=== PATIENT | male | born 1955 | race Caucasian/White ===

== ENCOUNTER → 2017-01-23 | Outpatient (CLI) | payer OTHER | LOC: RAD 09:08 | PROVIDERS: ATTEND Orthopaedic Surgery | DX: M25.562 Pain in left knee (principal); M71.22 Synovial cyst of popliteal space [Baker], left knee ==

== ENCOUNTER → 2018-08-11 | Outpatient (CLI) | payer OTHER ==
[2018-08-11 08:32] LABS: ABSOLUTE EOSINOPHILS # (AUTO) 0.1 10^3/uL (0.0-0.6); ABSOLUTE MONOCYTES (AUTO) 0.6 10^3/uL (0.1-1.4); ABSOLUTE NEUT (AUTO) 3.5 10^3/uL (1.7-8.2); BASOPHILS % (AUTO) 0.7 % (0-2); EOSINOPHILS % (AUTO) 2.2 % (0-6); HEMOGLOBIN 15.7 g/dL (13.5-17.0); LYMPHOCYTES % (AUTO) 31.7 % (13-45); MEAN CORPUSCULAR HEMOGLOBIN 31.3 pg (27.0-33.4); MEAN CORPUSCULAR HGB CONC 34.9 g/dL (32.0-36.0); MEAN CORPUSCULAR VOLUME 90 fl (80-97); MONOCYTES % (AUTO) 9.5 % (3-13); PLATELET COUNT 166 10^3/uL (150-450); RED BLOOD COUNT 5.01 10^6/uL (4.35-5.55); RED CELL DISTRIBUTION WIDTH 13.1 % (11.5-14.0); SEGMENTED NEUTROPHILS % (AUTO) 55.9 % (42-78); TOTAL CELLS COUNTED % (AUTO) 100 %; WHITE BLOOD COUNT 6.3 10^3/uL (4.0-10.5)
[2018-08-11 08:43] LABS: APPEARANCE,URINE CLEAR; BILIRUBIN,URINE NEGATIVE (NEGATIVE); COLOR,URINE YELLOW; GLUCOSE, URINE NEGATIVE (NEGATIVE); KETONES,URINE NEGATIVE (NEGATIVE); LEUKOCYTE ESTERASE,URINE NEGATIVE (NEGATIVE); NITRITE,URINE NEGATIVE (NEGATIVE); PROTEIN,URINE NEGATIVE (NEGATIVE); URINE SPECIFIC GRAVITY 1.015; UROBILINOGEN,URINE NEGATIVE mg/dL (<2.0)
[2018-08-11 09:04] LABS: ALANINE AMINOTRANSFERASE 39 U/L (21-72); ALBUMIN 4.4 g/dL (3.5-5.0); ALKALINE PHOSPHATASE 51 U/L (38-126); ANION GAP 9 (5-19); ASPARTATE AMINO TRANSFERASE 34 U/L (17-59); BILIRUBIN,DIRECT 0.2 mg/dL (0.0-0.4); BLOOD UREA NITROGEN 13 mg/dL (7-20); CALCIUM 9.7 mg/dL (8.4-10.2); CARBON DIOXIDE 29 mmol/L (22-30); CHLORIDE 101 mmol/L (98-107); GLUCOSE 99 mg/dL (75-110); POTASSIUM 4.7 mmol/L (3.6-5.0); SODIUM 138.7 mmol/L (137-145); TRIGLYCERIDES 106 mg/dL (<150)
[2018-08-11 09:05] LABS: CREATINE KINASE 188 U/L (55-170); GAMMA-GLUTAMYL TRANSFERASE 53 U/L (8-78); IRON 83.4 ug/dL (49-181)
[2018-08-11 09:15] LABS: DIRECT LDL 93 mg/dL (<100)
[2018-08-11 10:05] LABS: CHLAM PCR NOT DETECTED (NOT DETECT); GON PCR NOT DETECTED (NOT DETECT)
[2018-08-12 07:03] LABS: PROSTATE SPECIFIC ANTIGEN 5.1 ng/mL (0.0-4.0); PSA FREE 0.61 ng/mL
[2018-08-12 13:38] LABS: CREATININE URINE 156.6 mg/dL (Not Estab.); MICROALBUMIN URINE 4.2 ug/mL (Not Estab.)
== END ==
LOC: LAB 08:00
PROVIDERS: ATTEND Family Medicine
DX: Z00.00 Encounter for general adult medical examination without abnormal findings (principal); R97.8 Other abnormal tumor markers; R94.5 Abnormal results of liver function studies; E78.2 Mixed hyperlipidemia
CPT/HCPCS: 36415; 80053; 80061; 81001; 82043; 82306; 82550; 82570; 82607; 82728; 82746; 82977; 83036; 83540; 83735; 84154; 84403; 84443; 85025; 86592; 86701; 87491; 87591

== ENCOUNTER → 2018-11-30 | Outpatient (CLI) | payer OTHER ==
--- NOTE | 2018-12-01 09:19 | RADIOLOGY REPORT (SQ) ---
EXAM DESCRIPTION: PET CT SKULL/THIGH COMPLETED DATE/TIME: 11/30/2018 9:53 pm REASON FOR STUDY: ABNORMAL FINDING OF LUNG R91.8 OTHER NONSPECIFIC ABNORMAL FINDING OF LUNG FIELD COMPARISON: 09/22/2017. RADIONUCLIDE AND DOSE: 10 mCi F18 FDG The route of agent administration: Intravenous FASTING BLOOD SUGAR: 89 mg/dl CONTRAST TYPE AND DOSE: No CT contrast given. TECHNIQUE: Blood glucose level was verified. Above dose of FDG was injected intravenously. 2-D seg mented attenuation correction images were obtained from the base of the skull to the midthighs. Nonc ontrast CT images were obtained for attenuation correction and fusion with emission images. CT image s were performed without oral or intravenous contrast and are not sensitive for parenchymal lesions. A series of overlapping emission PET images were obtained. Images reviewed and manipulated at [facility] work station by the radiologist. Images stored on PACS. LIMITATIONS: None. FINDINGS: HEAD AND NECK: No areas of abnormal metabolic activity in the soft tissues of the head and neck. CHEST: Interval surgical changes on the left. Previously seen left lung nodule has been removed. Mi nimal left pleural effusion. Subcentimeter nodule in the right lower lobe (axial series 3, image 90) unchanged with no activity on PET imaging. There are small lymph nodes in the left axilla with slig htly prominent activity. 8.8 mm lymph node with mean SUV 2.81 (axial series 3, image 81) and another 8.8 mm lymph node with mean SUV 1.46 (axial series 3, image 83). ABDOMEN AND PELVIS: No areas of abnormal metabolic activity in the abdomen or pelvis. Expected physi ologic activity is present in the genitourinary system and bowel. PROXIMAL LOWER EXTREMITIES: No areas of abnormal metabolic activity in the soft tissues of the lower extremities. BONES: No abnormal metabolic activity in the visualized skeleton. ADDITIONAL CT FINDINGS: Low-attenuation lesion in the posterior right lobe of the liver, also present on the prior study, with no abnormal increased or decreased activity. No additional significant fin dings on the noncontrast CT images. OTHER: No other significant findings. Background blood pool activity mean SUV 1.75. Background live r activity mean SUV 2.27. IMPRESSION: 1. INTERVAL SURGICAL CHANGES ON THE LEFT WITH RESECTION OF THE PREVIOUSLY SEEN LEFT LUNG NODULE. SMA LL SUBCENTIMETER NODULE IN THE RIGHT LOWER LOBE IS UNCHANGED. NO ABNORMAL ACTIVITY WITHIN THE LUNGS OR MEDIASTINUM. 2. MINIMAL ACTIVITY IN THE LEFT AXILLARY LYMPH NODES DESCRIBED. THIS IS NONSPECIFIC AND COULD BE INCIDENTAL INFLAMMATORY CHANGE ALTHOUGH VERY EARLY METASTATIC INVOLVEMENT IS NOT ENTIRELY EXCLUDED. 3. STABLE LOW-ATTENUATION LESION IN THE POSTERIOR RIGHT LOBE OF THE LIVER, UNCHANGED SINCE SEPTEMBER 17. NO ABNORMAL INCREASED OR DECREASED ACTIVITY. PRESUMABLY A BENIGN LESION. 4. NO OTHER SIGNIFICANT FINDINGS. TECHNICAL DOCUMENTATION: JOB ID: [id number] [employer]- All Rights Reserved Reading location - IP/workstation name: [facility]-[id number]
== END ==
LOC: RAD 15:58
PROVIDERS: ATTEND Clinical Nurse Specialist Adult Health
DX: R91.1 Solitary pulmonary nodule (principal)
CPT/HCPCS: 78815; A9552